=== PATIENT | female | born 1965 | race Caucasian/White ===

== ENCOUNTER 2020-04-02 14:41 | Inpatient (IN) | payer OTHER, SELFPAY ==
[2020-04-02 15:49] LABS: #Basophils 0.1 thou/uL (0.0-0.2); #Eosinphils 0.1 thou/uL (0.0-0.7); #Lymphocytes 2.6 thou/uL (1.20-3.40); #Monocytes 1.1 thou/uL (0.11-0.59); #Neutrophils 14.5 thou/uL (1.40-6.50); %Basophils 0.7 % (0.0-1.0); %Eosinophils 0.6 % (0.0-10.0); %Lymphocytes 14.2 % (21.0-51.0); %Monocytes 5.7 % (0.0-10.0); %Neutrophils 78.9 % (42.0-75.0); Hemoglobin 14.5 g/dL (12.0-16.0); Mean Corpuscular HGB CONC 32.8 g/dL (32.0-36.0); Mean Corpuscular Hemoglobin 30.3 pg (27.0-31.0); Mean Corpuscular Volume 92.4 fL (78.0-98.0); Mean Platelet Volume 7.1 fL (7.4-10.4); Platelet Count 416 thou/uL (130-400); RBC Distribution Width 11.2 % (11.5-14.5); White Blood Cell (WBC) Count 18.4 thou/uL (4.8-10.8)
--- NOTE | 2020-04-02 15:59 | CT ---
CT head noncontrast HISTORY: Numbness. Tingling. Anxiety. FINDINGS: There is no evidence of acute intracranial hemorrhage or infarct. The ventricles appear nor mal in size, shape and position. There is no mass effect or shift of midline structures. Visualized paranasal sinuses remain well aera sami. Benign-appearing well-circumscribed oval partially 0.6 cm calcified lesion within the upper left frontal scalp is noted. IMPRESSION : No acute intracranial abnormalities are demonstrated.
[2020-04-02 16:05] LABS: ALT (SGPT) 12 U/L (8-55); AST (SGOT) 12 U/L (5-34); Albumin 3.8 g/dL (3.5-5.0); Alkaline Phosphatase 50 U/L (40-110); Anion Gap 14 mmol/L (10-20); BUN (Urea Nitrogen) 11 mg/dL (9.8-20.1); Bilirubin, Total 0.2 mg/dL (0.2-1.2); Calc. Creatinine Clearance 0 mL/min (70-130); Calcium 9.6 mg/dL (7.8-10.44); Carbon Dioxide 27 mmol/L (22-29); Chloride 102 mmol/L (98-107); Estimated GFR-MDRD 86; Globulin 2.9 g/dL (2.4-3.5); Glucose 115 mg/dL (70-105); Potassium 3.7 mmol/L (3.5-5.1); Protein, Total 6.7 g/dL (6.0-8.3); Sodium 139 mmol/L (136-145)
[2020-04-02] MEDS ORDERED: Lorazepam 2 MG/ML VIAL ONE ×2 (16:21→22:21)
[2020-04-02 19:26] LABS: Bilirubin Negative (Negative); Blood, Urine Negative (Negative); Clarity Turbid (Clear); Glucose, Urine (Dipstick) Normal (Negative); Ketone, Urine Negative (Negative); Leukocyte Negative Leu/uL (Negative); Nitrite Negative (Negative); Protein, Urine (Dipstick) Negative (Neg-Trace); Specific Gravity, Urine 1.019 (1.002-1.036); Urobilinogen Normal mg/dL (Less than 2)
[2020-04-02] MEDS ORDERED: Ondansetron PF 4 MG/2 ML Vial ONE (19:42)
[2020-04-02] MEDS ORDERED: Vancomycin 1 GM/200 ML BAG ONE (19:43)
[2020-04-02] MEDS ORDERED: Cefepime 2 GM VIAL ONE (19:43)
--- NOTE | 2020-04-02 20:14 | RAD ---
CHEST ONE VIEW: History: Chest pain. Numbness in face, tingling in hands, anxiety. FINDINGS: Heart size is normal. The lungs are clear. No confluent pneumonia, overt edema, or pleural effusion o r other acute process. IMPRESSION: As above. POS: RRE
[2020-04-02] MEDS ORDERED: Acetaminophen 500 MG TAB ONE (20:54)
[2020-04-02] MEDS ORDERED: Ondansetron PF 4 MG/2 ML Vial IVP PRN (21:33)
[2020-04-02] MEDS ORDERED: Acetaminophen 325 MG TAB PO PRN (21:33)
[2020-04-02] MEDS ORDERED: Promethazine HCl 12.5 MG in Sodium Chloride 0.9% 50 ML IVPB PRN (21:33)
[2020-04-02] MEDS ORDERED: Labetalol HCl 100 MG/20 ML VIAL SLOW IVP PRN (21:33)
[2020-04-02] MEDS ORDERED: cloNIDine 0.1 MG TAB PO PRN (21:33)
[2020-04-02] MEDS ORDERED: Guaifenesin DM 100-10/5 ML UDCUP PO PRN (21:33)
[2020-04-02] MEDS ORDERED: hydrALAZINE 20 MG/ML VIAL SLOW IVP PRN (21:33)
--- NOTE | 2020-04-02 21:35 | PDOC.HHP ---
Hospitalist HPI - History of Present Illness migratory numbness and tingling History of Present Illness: Patient is a 54 year old female with PMH severe anxiety, HTN, psoriasis who presents to ED for dizziness and migratory numbness. Patient reports first her hands being numb and dizziness last night. This morning was confused and could not get out of bed. She had a presyncopal episode,. Took her anxiety medication valium, later than day L side of face became numb. She reports also developing headache, dizziness, nausea. She reports a glove distribution of numbness at this moment as well as a dry mouth. She had a bit of chest pressure today, now resolved, denies cardiac history or ever having cardiac workup. she moved here 2 months ago. She was on prednisone before moving a few months ago for psoriasis, not on any steroids for a few months now. she gets humira injections for psoriasis and also takes otezla and GERD/HTN medications, no recent changes in medications. Of note, on interview, patient is anxious/panicking, crying, very scared that we will find something wrong with her this admission. She reports a very significant history of anxiety. In ED, WBC 13, troponin negative, tsh normal, EKG nonacute, CXR and CT head without acute findings. Patient admitted for further workup and care. VBG performed with low CO2 but ph still normal at 7.41 Hospitalist ROS - Review of Systems Constitutional: reports: weakness, malaise, other (dizziness). denies: fever, chills, sweats Eyes: denies: pain, vision change, conjunctivae inflammation, eyelid inflammation, redness, other ENT: denies: ear pain, ear discharge, nose pain, nose discharge, nose congestion, mouth pain, mouth swelling, throat pain, throat swelling, other Respiratory: denies: cough, dry, shortness of breath, hemoptysis, SOB with excertion, pleuritic pain, sputum, wheezing, other Cardiovascular: reports: chest pain, palpitations, light headedness Gastrointestinal: denies: nausea, vomiting, abdominal pain, diarrhea, constipation, melena, hematochezia, other Genitourinary: denies: dysuria, frequency, incontinence, hematuria, retention, other Musculoskeletal: denies: neck pain, shoulder pain, arm pain, back pain, hand pain, leg pain, foot pain, other Skin: denies: rash, lesions, diana, bruising, other Neurological: reports: numbness (per HPI) All other systems reviewed; all pertinent +/- noted in HPI/Subj - Medication Medications: diazePAM oral ThuApr 02, 2020 16:04 RODRICK Diaz Jessica tablet : Strength - 5 mg : ORAL Patient Dose: 5 mg Oral As Needed. Otezla ThuApr 02, 2020 16:04 RODRICK Diaz Jessica tablet : Strength - 30 mg : ORAL Patient Dose: 30 mg Oral once a day. lisinopril-hydrochlorothiazide ThuApr 02, 2020 16:05 RODRICK Diaz Jessica tablet : Strength - 20 mg-12.5 mg : ORAL Patient Dose: 1 tab(s) Oral once a day. famotidine oral ThuApr 02, 2020 16:05 RODRICK Diaz Jessica tablet : Strength - 20 mg : ORAL Patient Dose: 20 mg Oral once a day. Humira ThuApr 02, 2020 16:08 RODRICK Diaz Jessica syringe kit : Strength - 10 mg/0.2 mL : SUBCUTANEOUS Patient Dose: unk.EVERY 2 WEEKS. Hospitalist History - Past Medical History Other Medical History: HTN, psoriasis, anxiety - Past Surgical History Past Surgical History: reports: Hysterectomy - Family History Family History: reports: no pertinent history - Social History Smoking Status: Never smoker Alcohol: reports: None Drugs: reports: marijuana - Exam General Appearance: NAD, awake alert General - other findings: anxious Eye: PERRL, anicteric sclera ENT: normocephalic atraumatic, no oropharyngeal lesions, moist mucosa Neck: supple, symmetric, no JVD, no thyromegaly, no lymphadenopathy, no carotid bruit Heart: RRR, no murmur, no gallops, no rubs, normal peripheral pulses Respiratory: CTAB, no wheezes, no rales, no ronchi, normal chest expansion, no tachypnea, normal percussion Gastrointestinal: soft, non-tender, non-distended, normal bowel sounds, no palpable masses, no hepatomegaly, no splenomegaly, no bruit Extremities: no cyanosis, no clubbing, no edema Skin: normal turgor, no lesions, no rashes Neurological: cranial nerve grossly intact, normal sensation to touch, no weakness, no focal deficits, no new deficit Musculoskeletal: normal tone, normal strength, no muscle wasting Psychiatric: A&O x 3, oriented to person, oriented to place, oriented to time Psychiatric - other findings: extremely anxious and crying Hospitalist Results - Labs Result Diagrams: 04/03/20 04:05 04/03/20 04:05 Lab results: WBC 18.4 thou/uL (4.8-10.8) H 04/02/20 15:25 Hgb 14.5 g/dL (12.0-16.0) 04/02/20 15:25 Hct 44.3 % (36.0-47.0) 04/02/20 15:25 MCV 92.4 fL (78.0-98.0) 04/02/20 15:25 Plt Count 416 thou/uL (130-400) H 04/02/20 15:25 Neutrophils % 78.9 % (42.0-75.0) H 04/02/20 15:25 Sodium 139 mmol/L (136-145) 04/02/20 15:25 Potassium 3.7 mmol/L (3.5-5.1) 04/02/20 15:25 Chloride 102 mmol/L (98-107) 04/02/20 15:25 Carbon Dioxide 27 mmol/L (22-29) 04/02/20 15:25 BUN 11 mg/dL (9.8-20.1) 04/02/20 15:25 Creatinine 0.71 mg/dL (0.6-1.1) 04/02/20 15:25 Glucose 115 mg/dL (70-105) H 04/02/20 15:25 Lactic Acid 1.5 mmol/L (0.5-2.2) 04/02/20 18:27 Calcium 9.6 mg/dL (7.8-10.44) 04/02/20 15:25 Total Bilirubin 0.2 mg/dL (0.2-1.2) 04/02/20 15:25 AST 12 U/L (5-34) 04/02/20 15:25 ALT 12 U/L (8-55) 04/02/20 15:25 Alkaline Phosphatase 50 U/L (40-110) 04/02/20 15:25 Troponin I Less than 0.010 ng/mL (< 0.028) 04/02/20 15:25 Serum Total Protein 6.7 g/dL (6.0-8.3) 04/02/20 15:25 Albumin 3.8 g/dL (3.5-5.0) 04/02/20 15:25 Lipase 47 U/L (8-78) 04/02/20 19:36 Urine Ketones Negative mg/dL (Negative) 04/02/20 19:05 Urine Blood Negative (Negative) 04/02/20 19:05 Urine Nitrite Negative (Negative) 04/02/20 19:05 Ur Leukocyte Esterase Negative Nereyda/uL (Negative) 04/02/20 19:05 Additional comment: labs, EKG, ed documents, imaging reports reviewed. VITAL SIGNS ThuApr 02, 2020 21:00 RODRICK Rios Jordan BP: 129/100 MAP: 109 Pulse: 96 Resp: 20 Pain: 0 O2 sat: 98 on (Room Air) Time: 04/02/2020 21:00. Hospitalist H&P A/P - Plan Plan: Patient is a 54 year old female with PMH severe anxiety, HTN, psoriasis who pres ents to ED for dizziness and migratory numbness and chest pain. # chest pain # numbness/tingling # leukocytosis # history of anxiety, psoriasis, HTN A very wide range of symptoms x 24 hours or so including numbness, chest pain, altered mental status, dizziness, presyncope. No cardiac history, never had cardiac workup. No recent medication changes. She reports a very significant history of anxiety. In ED, WBC 13, troponin negative, tsh normal, EKG nonacute, CXR and CT head without acute findings. Patient admitted for further workup and care. - VBG performed with normal PH but low CO2, which could suggest hyperventilation and respiratory alkalosis. I was wondering if this could be respiratory alkalosis from anxiety induced hyperventilation ,she has low CO2 and when panicking may be causing alkalosis, but this may be hard to confirm. monitor psychiatric symptoms - rule out OR w/ stress test, echo to rule out valve disease. aspirin and statin in meantime - if all else is negative, could consider neurology consult, will depend on progression of symptoms. I somewhat suspect this is all anxiety related though, will order PRN ativan which may improve patient mental state - unsure why leukocytosis present, no signs of infection. monitor off of abx. DVT/GI ppx full code
[2020-04-02 21:38] LABS: Troponin I Less than 0.010 ng/mL (< 0.028)
[2020-04-02] MEDS ORDERED: Lorazepam 2 MG/ML VIAL SLOW IVP PRN (21:45)
[2020-04-02] MEDS ORDERED: Lorazepam 2 MG/ML VIAL SLOW IVP SCH (22:00)
[2020-04-02] MEDS: Sodium Chloride 0.9% 1,000 ML IV SCH (23:44)
[2020-04-03 01:14] LABS: Troponin I Less than 0.010 ng/mL (< 0.028)
[2020-04-03 03:45] LABS: Actual Bicarbonate (HCO3v) 24 mEq/L (22-28); Base Excess -0.8 mEq/L (-2.0 to +3.0); Calcium, Ionized (venous) 1.13 mmol/L (1.16-1.32); Chloride (ABG LAB) 107 mmol/L (98-106); Hemoglobin (Hb) 12.8 g/dL (11.7-16.0); Potassium - ABG Lab 3.32 mmol/L (3.70-5.30); Sodium 138.7 mmol/L (133-146); pH (venous) 7.41 (7.32-7.43)
[2020-04-03 04:44] LABS: #Basophils 0.1 thou/uL (0.0-0.2); #Eosinphils 0.3 thou/uL (0.0-0.7); #Lymphocytes 5.7 thou/uL (1.20-3.40); #Monocytes 1.2 thou/uL (0.11-0.59); #Neutrophils 5.8 thou/uL (1.40-6.50); %Basophils 1.1 % (0.0-1.0); %Eosinophils 2.6 % (0.0-10.0); %Lymphocytes 43.2 % (21.0-51.0); %Monocytes 8.9 % (0.0-10.0); %Neutrophils 44.3 % (42.0-75.0); Hemoglobin 12.6 g/dL (12.0-16.0); Mean Corpuscular HGB CONC 33.4 g/dL (32.0-36.0); Mean Corpuscular Hemoglobin 31.1 pg (27.0-31.0); Mean Platelet Volume 7.3 fL (7.4-10.4); Platelet Count 359 thou/uL (130-400); RBC Distribution Width 11.2 % (11.5-14.5); Red Blood Cell (RBC) Count 4.06 mill/uL (4.20-5.40); White Blood Cell (WBC) Count 13.2 thou/uL (4.8-10.8)
[2020-04-03 05:03] LABS: Anion Gap 11 mmol/L (10-20); BUN (Urea Nitrogen) 10 mg/dL (9.8-20.1); Calc. Creatinine Clearance 156 mL/min (70-130); Calcium 8.2 mg/dL (7.8-10.44); Carbon Dioxide 22 mmol/L (22-29); Chloride 109 mmol/L (98-107); Estimated GFR-MDRD Greater than 90; Glucose 99 mg/dL (70-105); Potassium 3.5 mmol/L (3.5-5.1); Sodium 138 mmol/L (136-145)
[2020-04-03] MEDS ORDERED: Magnesium 2 GM/50 ML 2 GM in Premix Bag 1 BAG IVPB SCH (06:30)
[2020-04-03] MEDS ORDERED: Potassium Chloride 20 MEQ TAB PO SCH (06:45)
[2020-04-03] MEDS ORDERED: Aspirin 325 mg Enteric Coated Tablet PO SCH (07:45)
[2020-04-03] MEDS ORDERED: ADENOSINE 60 MG/20 ML VIAL ONE (08:54)
[2020-04-03] MEDS: Famotidine 20 MG TAB PO SCH ×2 (08:54→20:51)
[2020-04-03] MEDS: Aspirin 81 mg Enteric Coated Tablet PO SCH (08:54)
[2020-04-03] MEDS ORDERED: Regadenoson 0.4 MG/5 ML SYRINGE ONE (08:54)
[2020-04-03] MEDS: Sodium Chloride 0.9% 1,000 ML IV SCH ×2 (08:56→22:35)
--- NOTE | 2020-04-03 13:46 | CON ---
NEUROLOGY CONSULTATION DATE OF CONSULTATION: 04/03/2020 REASON FOR CONSULTATION: Focal paresthesias of left face and left upper extremity/spells of disorientation. HISTORY OF PRESENT ILLNESS: Ms. Amber Roper is a 54-year-old female with history significant for severe anxiety, hypertension, psoriasis, presented with dizziness and focal paresthesias of the left side of the face and left upper extremity. However, at times, she does have numbness and tingling of both hands. The patient also has syncopal episode associated with the confusion, which was followed by later that day left-sided facial numbness associated with numbness in the left upper extremity. She also has glove and stocking distribution numbness most of the time with dry mouth. Per the patient, she has been having these episodes on and off since the last 1 month, but for the last couple of days, they have been progressive, so she decided to come to the emergency room for further evaluation. In the emergency room, head CT was done, which did not reveal any acute intracranial pathology. She also has complained of chest pain and pressure, for which she has been currently evaluated by Cardiology. The patient denies nausea or vomiting. Reports chest pain. She does have dizziness and nausea, but denies problem with speech or swallowing associated with the episode. HOME MEDICATIONS: 1. Diazepam 5 mg as needed. 2. Otezla 30 mg once daily. 3. Lisinopril-hydrochlorothiazide 20 mg once a day. 4. Famotidine 20 mg once a day. 5. Humira subcutaneously every 2 weeks. PAST MEDICAL HISTORY: 1. Hypertension. 2. Psoriasis. 3. Anxiety. PAST SURGICAL HISTORY: Hysterectomy. FAMILY HISTORY: No pertinent family history. SOCIAL HISTORY: The patient denies smoking, alcohol, or illegal drug use. ALLERGIES: PCN, Sulfa REVIEW OF SYSTEMS: Constitutional: reports: weakness, malaise, other (dizziness). denies: fever, chills, sweats Eyes: denies: pain, vision change, conjunctivae inflammation, eyelid inflammation, redness, other ENT: denies: ear pain, ear discharge, nose pain, nose discharge, nose congestion, mouth pain, mouth swelling, throat pain, throat swelling, other Respiratory: denies: cough, dry, shortness of breath, hemoptysis, SOB with excertion, pleuritic pain, sputum, wheezing, other Cardiovascular: reports: chest pain, palpitations, light headedness Gastrointestinal: denies: nausea, vomiting, abdominal pain, diarrhea, constipation, melena, hematochezia, other Genitourinary: denies: dysuria, frequency, incontinence, hematuria, retention, other Musculoskeletal: denies: neck pain, shoulder pain, arm pain, back pain, hand pain, leg pain, foot pain, other Skin: denies: rash, lesions, diana, bruising, other Neurological: reports: numbness (per HPI) All other systems reviewed; all pertinent +/- noted in HPI/Subj PHYSICAL EXAMINATION: General Appearance: NAD, awake alert General - other findings: anxious Eye: PERRL, anicteric sclera ENT: normocephalic atraumatic, no oropharyngeal lesions, moist mucosa Neck: supple, symmetric, no JVD, no thyromegaly, no lymphadenopathy, no carotid bruit Heart: RRR, no murmur, no gallops, no rubs, normal peripheral pulses Respiratory: CTAB, no wheezes, no rales, no ronchi, normal chest expansion, no tachypnea, normal percussion Gastrointestinal: soft, non-tender, non-distended, normal bowel sounds, no palpable masses, no hepatomegaly, no splenomegaly, no bruit Extremities: no cyanosis, no clubbing, no edema Skin: normal turgor, no lesions, no rashes Neurological: Mental status; the patient is alert and oriented to person, place, and time. Recent and remote memory clear. Fund of knowledge is appropriate. Speech is clear. Cranial nerves 2 through 12 intact except 5. Decreased sensation to light touch in the V1, V2, V3 distribution. Motor; muscle tone and bulk are normal. Moving all 4 extremities equally and symmetrically. Strength 5/5 bilaterally. Sensory; decreased sensation to light touch in the left upper extremity. Cerebellar; finger-nose testing intact. Gait within normal limits. DATA REVIEWED: I reviewed the labs, which were essentially unremarkable. EKG showed normal sinus rhythm. Lab results: WBC 18.4 thou/uL (4.8-10.8) H 04/02/20 15:25 Hgb 14.5 g/dL (12.0-16.0) 04/02/20 15:25 Hct 44.3 % (36.0-47.0) 04/02/20 15:25 MCV 92.4 fL (78.0-98.0) 04/02/20 15:25 Plt Count 416 thou/uL (130-400) H 04/02/20 15:25 Neutrophils % 78.9 % (42.0-75.0) H 04/02/20 15:25 Sodium 139 mmol/L (136-145) 04/02/20 15:25 Potassium 3.7 mmol/L (3.5-5.1) 04/02/20 15:25 Chloride 102 mmol/L (98-107) 04/02/20 15:25 Carbon Dioxide 27 mmol/L (22-29) 04/02/20 15:25 BUN 11 mg/dL (9.8-20.1) 04/02/20 15:25 Creatinine 0.71 mg/dL (0.6-1.1) 04/02/20 15:25 Glucose 115 mg/dL (70-105) H 04/02/20 15:25 Lactic Acid 1.5 mmol/L (0.5-2.2) 04/02/20 18:27 Calcium 9.6 mg/dL (7.8-10.44) 04/02/20 15:25 Total Bilirubin 0.2 mg/dL (0.2-1.2) 04/02/20 15:25 AST 12 U/L (5-34) 04/02/20 15:25 ALT 12 U/L (8-55) 04/02/20 15:25 Alkaline Phosphatase 50 U/L (40-110) 04/02/20 15:25 Troponin I Less than 0.010 ng/mL (< 0.028) 04/02/20 15:25 Serum Total Protein 6.7 g/dL (6.0-8.3) 04/02/20 15:25 Albumin 3.8 g/dL (3.5-5.0) 04/02/20 15:25 Lipase 47 U/L (8-78) 04/02/20 19:36 Urine Ketones Negative mg/dL (Negative) 04/02/20 19:05 Urine Blood Negative (Negative) 04/02/20 19:05 Urine Nitrite Negative (Negative) 04/02/20 19:05 Ur Leukocyte Esterase Negative Nereyda/uL (Negative) 04/02/20 19:05 Additional comment: labs, EKG, ed documents, imaging reports reviewed. ASSESSMENT AND PLAN: Ms. Roper is a 54-year-old female with history significant for severe anxiety, hypertension, psoriasis, presented with focal numbness and paresthesias in the left side of the face and left upper extremity and some episodes of disorientation. She also complains of chest pain, for which she has been evaluated by Cardiology. Consider EEG to rule out underlying cortical irritability. MRI of the brain to rule out acute intracranial process. Continue neuro checks every 2 hours. Continue home medications. Continue medical management per primary team. Continue aspirin and high-intensity statin for secondary stroke prevention. DVT prophylaxis, GI prophylaxis. Further recommendation depends on the results of the testing. Thank you for the consult. Job ID: [id number] MTDD
[2020-04-03] MEDS ORDERED: Magnevist 469MG/ML 20 ML VIAL ONE (13:48)
[2020-04-03] MEDS: Polyethylene Glycol 3350 17 GM Packet PO SCH (13:55)
[2020-04-03] MEDS: Diazepam 5 MG TAB PO PRN (14:21)
--- NOTE | 2020-04-03 15:36 | MRI ---
MRI brain with and without contrast: DATE: 04/03/2020 HISTORY: 54-year-old female with seizure TECHNIQUE: Multiplanar, multisequence MRI of the brain obtained pre and post IV injection of gadolinium based co ntrast agent. FINDINGS: There is no obstructive hydrocephalus. There is no midline shift or any other evidence of mass effect . There is no extra-axial fluid collection. There are mild chronic ischemic white matter changes due to microvascular atherosclerosis. There is otherwise no major intra-axial signal abnormality, abn ormal enhancement, mass, recent hemorrhage, or restricted diffusion. No asymmetry between the left and right hippocampi. IMPRESSION: 1) mild chronic ischemic white matter changes. 2) otherwise negative
[2020-04-03] MEDS ORDERED: Cyclobenzaprine 10 MG TAB PO SCH (18:30)
[2020-04-03] MEDS: Meclizine HCl 25 MG TAB PO SCH (19:06)
[2020-04-03] MEDS: Enoxaparin Sodium 40 MG/0.4 ML SYRINGE SC SCH (20:48)
[2020-04-03] MEDS: Atorvastatin Calcium 40 MG TAB PO SCH (20:51)
[2020-04-03] MEDS: Docusate 100 MG CAP PO SCH (20:51)
[2020-04-04] MEDS: Meclizine HCl 25 MG TAB PO SCH ×3 (01:42→18:23)
--- NOTE | 2020-04-04 08:30 | EEG ---
DATE OF SERVICE: 04/03/2020 ATTENDING PHYSICIAN: Desiree Maurice MD This EEG was performed using 24-channel [employer] video digital EEG machine with 24-disk electrodes. This was an extended 2 hours 6 minutes of inpatient video EEG recording. Digital analysis of the EEG was done for spike and seizure detection, which revealed no abnormalities. BACKGROUND: The posterior background rhythm is 9 to 10 hertz. The background rhythm attenuates with eye opening and enhances with eye closure. HYPERVENTILATION: Not performed. PHOTIC STIMULATION: No significant response seen with photic stimulation. SLEEP: Drowsiness is observed. EEG DIAGNOSIS: Normal awake and drowsy EEG. Job ID: [id number]
[2020-04-04] MEDS: Famotidine 20 MG TAB PO SCH ×2 (09:12→21:22)
[2020-04-04] MEDS: Aspirin 81 mg Enteric Coated Tablet PO SCH (09:13)
[2020-04-04] MEDS: Polyethylene Glycol 3350 17 GM Packet PO SCH (09:13)
--- NOTE | 2020-04-04 10:28 | NM ---
CARDIAC SPECT: CLINICAL HISTORY: 54-year-old female with chest pain and hypertension. TECHNIQUE: A myocardial perfusion scan was performed using the single isotope two day protocol with 31 mCi techn etium-99m sestamibi injected intravenously for both stress and rest images. Pharmacologic stress with Adenosine was monitored and interpreted by Dr. Traylor. FINDINGS: Homogeneous tracer distribution is seen in the myocardial segments on the rest images. The stress willem ges demonstrate a small focal area of mildly decreased tracer localization in the distal anteroseptal wall. GATED SPECT LVEF: 67%. WALL MOTION EXAM: Normal. IMPRESSION: Probable small area of mild ischemia in the distal anteroseptal wall. POS: AH
[2020-04-04] MEDS: Sodium Chloride 0.9% 1,000 ML IV SCH (10:32)
[2020-04-04] MEDS ORDERED: ALPRAZolam 0.25 MG TAB PO PRN (11:26)
[2020-04-04] MEDS ORDERED: traMADol HCl 50 MG TAB PO PRN (11:26)
[2020-04-04] MEDS ORDERED: Communication Order-Pharmacy FS SCH (11:30)
[2020-04-04 11:51] LABS: SARS-CoV-2 MS2 Positive; SARS-CoV-2 N Gene Negative; SARS-CoV-2 S Gene Negative; SARS-CoV-2 by NAA Not Detected (NotDetected); SARS-CoV-2 orf1ab Negative
--- NOTE | 2020-04-04 13:53 | STRESS ---
Acquisition Time: 2020-04-03 09:41:13 Total Exercise Time: 00:04:00 Test Indications: CHEST PAIN Medications: Protocol: ADENOSINE Max HR: 131 BPM 78% of Pred: 166 BPM Max BP: 138/062 mmHG Max Work Load: 1.0 METS THE PATIENT DEVELOPED COMPLETE HEART BLOCK WITH ADENOSINE. THE PATIENT WAS THEN INJECTED WITH LEXISCAN. SHE DID DEVELOP CHEST PAIN. THERE WAS NO SIGNIFICANT ST DEPRESSION. AWAIT NUCLEAR IMAGES FOR DEFINITIVE DIAGNOSIS. Confirmed by ERNIE EARLY ([id number]), editor at large DORIAN RODGERS ([id number]) on 04/04/2020 1:53:32 PM Referred By: MD Sergio CASTILLO Confirmed By:ERNIE EARLY
--- NOTE | 2020-04-04 13:58 | PDOC.NEUPN ---
- Subjective Encounter Date: 04/04/20 Subjective: Patient feels better today. MRI brain and EEG were negative. Results explained to the patient. - Objective Vital Signs & Weight: Vital Signs (12 hours) Temp Pulse Resp BP Pulse Ox 04/04/20 11:59 97.8 F 83 16 171/81 H 99 04/04/20 08:02 97.4 F L 88 16 132/74 98 04/04/20 03:50 97.6 F 75 20 114/75 97 Weight Admit Weight 216 lb 3 oz Weight 215 lb 6.4 oz I&O: 04/03/20 04/04/20 04/05/20 06:59 06:59 06:59 Intake Total 840 1680 Balance 840 1680 Result Diagrams: 04/03/20 04:05 04/03/20 04:05 Radiology Reviewed by me: Yes EKG Reviewed by me: Yes ROS - Review of Systems Constitutional: denies: fever, chills, sweats, weakness, malaise, other Eyes: denies: pain, vision change, conjunctivae inflammation, eyelid inflammation, redness, other ENT: denies: ear pain, ear discharge, nose pain, nose discharge, nose congestion, mouth pain, mouth swelling, throat pain, throat swelling, other Respiratory: denies: cough, dry, shortness of breath, hemoptysis, SOB with excertion, pleuritic pain, sputum, wheezing, other Cardiovascular: reports: no pertinent history Gastrointestinal: denies: nausea, vomiting, abdominal pain, diarrhea, constipation, melena, hematochezia, other Musculoskeletal: reports: arm pain. denies: neck pain, shoulder pain, back p ain, hand pain, leg pain, foot pain, other Neurological: reports: weakness, numbness. denies: incoordination, change in speech, confusion, seizures, other - Medication Medications: Active Medications Generic Name Dose Route Start Last Admin Trade Name Freq PRN Reason Stop Dose Admin Alprazolam 0.25 mg 04/04/20 11:26 04/04/20 11:49 Alprazolam 0.25 Mg Tab PO 0.25 mg TIDPRN PRN Administration Anxiety Aspirin 81 mg 04/03/20 09:00 04/04/20 09:13 Aspirin 81 Mg Enteric Coated Tablet PO 81 mg DAILY KARMA Administration Atorvastatin Calcium 40 mg 04/03/20 21:00 04/03/20 20:51 Atorvastatin Calcium 40 Mg Tab PO 40 mg HS KARMA Administration Diazepam 5 mg 04/03/20 08:31 04/03/20 14:21 Diazepam 5 Mg Tab PO 5 mg BID PRN Administration Anxiety Docusate Sodium 100 mg 04/03/20 21:00 04/03/20 20:51 Docusate 100 Mg Cap PO 100 mg HS KARMA Administration Enoxaparin Sodium 40 mg 04/03/20 21:00 04/03/20 20:48 Enoxaparin Sodium 40 Mg/0.4 Ml Syringe SC 04/04/20 23:00 40 mg 2100 KARMA Administration Famotidine 20 mg 04/03/20 09:00 04/04/20 09:12 Famotidine 20 Mg Tab PO 20 mg BID KARMA Administration Lorazepam 0.5 mg 04/02/20 21:45 04/03/20 12:12 Lorazepam 2 Mg/Ml Vial SLOW IVP 0.5 mg Q6H PRN Administration Anxiety/Agitation Meclizine HCl 25 mg 04/03/20 18:30 04/04/20 10:31 Meclizine Hcl 25 Mg Tab PO 25 mg Q8H KARMA Administration Polyethylene Glycol 17 gm 04/03/20 09:00 04/04/20 09:13 Polyethylene Glycol 3350 17 Gm Packet PO 17 gm DAILY KARMA Administration Sodium Chloride 10 ml 04/03/20 09:00 04/04/20 09:13 Flush - Normal Saline 10 Ml Syringe IVF 10 ml Q12HR KARMA Administration Tramadol HCl 50 mg 04/04/20 11:26 04/04/20 11:49 Tramadol Hcl 50 Mg Tab PO 50 mg Q6H PRN Administration Pain - Exam General Appearance: awake alert Eye: PERRL ENT: normocephalic atraumatic Neck: supple Respiratory: CTAB Cardiovascular: RRR Gastrointestinal: soft, non-tender Extremities: no cyanosis Skin: normal turgor Neurological: no focal deficits, no new deficit Musculoskeletal: normal tone, normal strength, no muscle wasting PSYCH: normal affect, normal behavior, A&O x 3 Results - Labs Result Diagrams: 04/03/20 04:05 04/03/20 04:05 Lab results: WBC 13.2 thou/uL (4.8-10.8) H 04/03/20 04:05 Hgb 12.6 g/dL (12.0-16.0) 04/03/20 04:05 Hct 37.7 % (36.0-47.0) 04/03/20 04:05 MCV 93.0 fL (78.0-98.0) 04/03/20 04:05 Plt Count 359 thou/uL (130-400) 04/03/20 04:05 Neutrophils % 44.3 % (42.0-75.0) 04/03/20 04:05 VBG pH 7.41 (7.32-7.43) 04/03/20 03:44 VBG pCO2 37.6 mmHg (42.0-51.0) L 04/03/20 03:44 VBG pO2 243.0 mmHg (35.0-45.0) H 04/03/20 03:44 Sodium 138 mmol/L (136-145) 04/03/20 04:05 Potassium 3.5 mmol/L (3.5-5.1) 04/03/20 04:05 Chloride 109 mmol/L (98-107) H 04/03/20 04:05 Carbon Dioxide 22 mmol/L (22-29) 04/03/20 04:05 BUN 10 mg/dL (9.8-20.1) 04/03/20 04:05 Creatinine 0.64 mg/dL (0.6-1.1) 04/03/20 04:05 Glucose 99 mg/dL (70-105) 04/03/20 04:05 Lactic Acid 1.5 mmol/L (0.5-2.2) 04/02/20 18:27 Calcium 8.2 mg/dL (7.8-10.44) 04/03/20 04:05 Total Bilirubin 0.2 mg/dL (0.2-1.2) 04/02/20 15:25 AST 12 U/L (5-34) 04/02/20 15:25 ALT 12 U/L (8-55) 04/02/20 15:25 Alkaline Phosphatase 50 U/L (40-110) 04/02/20 15:25 Troponin I Less than 0.010 ng/mL (< 0.028) 04/03/20 00:37 Serum Total Protein 6.7 g/dL (6.0-8.3) 04/02/20 15:25 Albumin 3.8 g/dL (3.5-5.0) 04/02/20 15:25 Lipase 47 U/L (8-78) 04/02/20 19:36 Urine Ketones Negative mg/dL (Negative) 04/02/20 19:05 Urine Blood Negative (Negative) 04/02/20 19:05 Urine Nitrite Negative (Negative) 04/02/20 19:05 Ur Leukocyte Esterase Negative Nereyda/uL (Negative) 04/02/20 19:05 - Radiology Interpretation MRI - head Status: image reviewed by me, report reviewed by me Additional Comment: No acute intracranial pathology PN A/P (1) Complaint of paresthesia Code(s): R20.2 - PARESTHESIA OF SKIN Status: Acute (2) AMS (altered mental status) Code(s): R41.82 - ALTERED MENTAL STATUS, UNSPECIFIED Status: Acute (3) Anxiety Code(s): F41.9 - ANXIETY DISORDER, UNSPECIFIED Status: Acute (4) Chest pain Code(s): R07.9 - CHEST PAIN, UNSPECIFIED Status: Acute - Plan Daily Plan: PT/OT, speech therapy 54-year-old female with history of anxiety disorder and multiple complaints i ncluding focal paresthesias of the face and arm, mild episodes of confusion, chest pain consulted by neurology. Intracranial process seems less likely due to negative imaging and EEG MRI of the brain completed and was which was reviewed and was negative for acute intracranial pathology. EEG reviewed and was negative for underlying cortical irritability. 2D echo did not not show thrombus or PFO. Left ventricle ejection fraction is 60 to 65%. Continue home medications PT/OT Strict control of blood pressure and blood glucose. Continue medical management per primary team. Plan and results discussed in detail with the patient.
--- NOTE | 2020-04-04 16:53 | PDOC.HOSPP ---
- Subjective Encounter Date: 04/04/20 Encounter Time: 09:00 Subjective: Patient up in bed appears very emotional she was updated that she will be seen by cardiology. - Objective Vital Signs & Weight: Vital Signs (12 hours) Temp Pulse Resp BP Pulse Ox 04/04/20 11:59 97.8 F 83 16 171/81 H 99 04/04/20 08:02 97.4 F L 88 16 132/74 98 Weight Admit Weight 216 lb 3 oz Weight 215 lb 6.4 oz I&O: 04/03/20 04/04/20 04/05/20 06:59 06:59 06:59 Intake Total 840 1680 Balance 840 1680 Result Diagrams: 04/03/20 04:05 04/03/20 04:05 Hospitalist ROS - Review of Systems Cardiovascular: denies: chest pain, palpitations, orthopnea, paroxysmal noc. dyspnea, edema, light headedness, other Gastrointestinal: denies: nausea, vomiting, abdominal pain, diarrhea, constipat ion, melena, hematochezia, other Genitourinary: denies: dysuria, frequency, incontinence, hematuria, retention, other - Medication Medications: Active Medications Generic Name Dose Route Start Last Admin Trade Name Freq PRN Reason Stop Dose Admin Alprazolam 0.25 mg 04/04/20 11:26 04/04/20 11:49 Alprazolam 0.25 Mg Tab PO 0.25 mg TIDPRN PRN Administration Anxiety Aspirin 81 mg 04/03/20 09:00 04/04/20 09:13 Aspirin 81 Mg Enteric Coated Tablet PO 81 mg DAILY KARMA Administration Atorvastatin Calcium 40 mg 04/03/20 21:00 04/03/20 20:51 Atorvastatin Calcium 40 Mg Tab PO 40 mg HS KARMA Administration Diazepam 5 mg 04/03/20 08:31 04/03/20 14:21 Diazepam 5 Mg Tab PO 5 mg BID PRN Administration Anxiety Docusate Sodium 100 mg 04/03/20 21:00 04/03/20 20:51 Docusate 100 Mg Cap PO 100 mg HS KARMA Administration Enoxaparin Sodium 40 mg 04/03/20 21:00 04/03/20 20:48 Enoxaparin Sodium 40 Mg/0.4 Ml Syringe SC 04/04/20 23:00 40 mg 2100 KARMA Administration Famotidine 20 mg 04/03/20 09:00 04/04/20 09:12 Famotidine 20 Mg Tab PO 20 mg BID KARMA Administration Lorazepam 0.5 mg 04/02/20 21:45 04/03/20 12:12 Lorazepam 2 Mg/Ml Vial SLOW IVP 0.5 mg Q6H PRN Administration Anxiety/Agitation Meclizine HCl 25 mg 04/03/20 18:30 04/04/20 10:31 Meclizine Hcl 25 Mg Tab PO 25 mg Q8H KARMA Administration Polyethylene Glycol 17 gm 04/03/20 09:00 04/04/20 09:13 Polyethylene Glycol 3350 17 Gm Packet PO 17 gm DAILY KARMA Administration Sodium Chloride 10 ml 04/03/20 09:00 04/04/20 09:13 Flush - Normal Saline 10 Ml Syringe IVF 10 ml Q12HR KARMA Administration Tramadol HCl 50 mg 04/04/20 11:26 04/04/20 11:49 Tramadol Hcl 50 Mg Tab PO 50 mg Q6H PRN Administration Pain - Exam Neck: negative: supple, symmetric, no JVD, no thyromegaly, no lymphadenopathy, no carotid bruit, JVD Heart: negative: RRR, no murmur, no gallops, no rubs, normal peripheral pulses, irregular, diminshed peripheral pulses, murmur present, II/IV, III/IV Respiratory: negative: CTAB, no wheezes, no rales, no ronchi, normal chest expansion, no tachypnea, normal percussion, rales, rhonchi, tachypneic, wheezes Gastrointestinal: negative: soft, non-tender, non-distended, normal bowel sounds, no palpable masses, no hepatomegaly, no splenomegaly, no bruit, no guarding, no rigidity, tender to palpation, distended, diminished bowl sounds, voluntary guarding Hosp A/P (1) Third degree heart block Code(s): I44.2 - ATRIOVENTRICULAR BLOCK, COMPLETE Status: Acute (2) Psoriasis Code(s): L40.9 - PSORIASIS, UNSPECIFIED Status: Acute (3) Anxiety Code(s): F41.9 - ANXIETY DISORDER, UNSPECIFIED Status: Acute (4) Chest pain Code(s): R07.9 - CHEST PAIN, UNSPECIFIED Status: Acute - Plan MRI brain negative. Patient went down for stress test today had third-degree heart block. Will get cardiology to see her. Patient being evaluated by neurology 04/04 patient up in bed and seen by cardiology will get a cardiac cath in a.m. Will order as needed Xanax. Labs ordered. Echo pending.
--- NOTE | 2020-04-04 16:54 | PDOC.HOSPP ---
- Subjective Encounter Date: 04/03/20 Encounter Time: 17:00 Subjective: Patient up in chair states that she gets dizzy at times when she gets out of bed. She states that she has been having this going on for the past month. - Objective Vital Signs & Weight: Vital Signs (12 hours) Temp Pulse Resp BP Pulse Ox 04/04/20 11:59 97.8 F 83 16 171/81 H 99 04/04/20 08:02 97.4 F L 88 16 132/74 98 Weight Admit Weight 216 lb 3 oz Weight 215 lb 6.4 oz I&O: 04/03/20 04/04/20 04/05/20 06:59 06:59 06:59 Intake Total 840 1680 Balance 840 1680 Result Diagrams: 04/03/20 04:05 04/03/20 04:05 Hospitalist ROS - Review of Systems Respiratory: denies: cough, dry, shortness of breath, hemoptysis, SOB with excertion, pleuritic pain, sputum, wheezing, other Cardiovascular: reports: light headedness Gastrointestinal: denies: nausea, vomiting, abdominal pain, diarrhea, constipation, melena, hematochezia, other Genitourinary: denies: dysuria, frequency, incontinence, hematuria, retention, other - Medication Medications: Active Medications Generic Name Dose Route Start Last Admin Trade Name Freq PRN Reason Stop Dose Admin Alprazolam 0.25 mg 04/04/20 11:26 04/04/20 11:49 Alprazolam 0.25 Mg Tab PO 0.25 mg TIDPRN PRN Administration Anxiety Aspirin 81 mg 04/03/20 09:00 04/04/20 09:13 Aspirin 81 Mg Enteric Coated Tablet PO 81 mg DAILY KARMA Administration Atorvastatin Calcium 40 mg 04/03/20 21:00 04/03/20 20:51 Atorvastatin Calcium 40 Mg Tab PO 40 mg HS KARMA Administration Diazepam 5 mg 04/03/20 08:31 04/03/20 14:21 Diazepam 5 Mg Tab PO 5 mg BID PRN Administration Anxiety Docusate Sodium 100 mg 04/03/20 21:00 04/03/20 20:51 Docusate 100 Mg Cap PO 100 mg HS KARMA Administration Enoxaparin Sodium 40 mg 04/03/20 21:00 04/03/20 20:48 Enoxaparin Sodium 40 Mg/0.4 Ml Syringe SC 04/04/20 23:00 40 mg 2100 KARMA Administration Famotidine 20 mg 04/03/20 09:00 04/04/20 09:12 Famotidine 20 Mg Tab PO 20 mg BID KARMA Administration Lorazepam 0.5 mg 04/02/20 21:45 04/03/20 12:12 Lorazepam 2 Mg/Ml Vial SLOW IVP 0.5 mg Q6H PRN Administration Anxiety/Agitation Meclizine HCl 25 mg 04/03/20 18:30 04/04/20 10:31 Meclizine Hcl 25 Mg Tab PO 25 mg Q8H KARMA Administration Polyethylene Glycol 17 gm 04/03/20 09:00 04/04/20 09:13 Polyethylene Glycol 3350 17 Gm Packet PO 17 gm DAILY KARMA Administration Sodium Chloride 10 ml 04/03/20 09:00 04/04/20 09:13 Flush - Normal Saline 10 Ml Syringe IVF 10 ml Q12HR KARMA Administration Tramadol HCl 50 mg 04/04/20 11:26 04/04/20 11:49 Tramadol Hcl 50 Mg Tab PO 50 mg Q6H PRN Administration Pain - Exam Neck: negative: supple, symmetric, no JVD, no thyromegaly, no lymphadenopathy, no carotid bruit, JVD Heart: negative: RRR, no murmur, no gallops, no rubs, normal peripheral pulses, irregular, diminshed peripheral pulses, murmur present, II/IV, III/IV Respiratory: negative: CTAB, no wheezes, no rales, no ronchi, normal chest expansion, no tachypnea, normal percussion, rales, rhonchi, tachypneic, wheezes Gastrointestinal: negative: soft, non-tender, non-distended, normal bowel sounds, no palpable masses, no hepatomegaly, no splenomegaly, no bruit, no guarding, no rigidity, tender to palpation, distended, diminished bowl sounds, voluntary guarding Hosp A/P (1) Third degree heart block Code(s): I44.2 - ATRIOVENTRICULAR BLOCK, COMPLETE Status: Acute (2) Psoriasis Code(s): L40.9 - PSORIASIS, UNSPECIFIED Status: Acute (3) Anxiety Code(s): F41.9 - ANXIETY DISORDER, UNSPECIFIED Status: Acute (4) Chest pain Code(s): R07.9 - CHEST PAIN, UNSPECIFIED Status: Acute (5) Lightheadedness Code(s): R42 - DIZZINESS AND GIDDINESS Status: Acute - Plan MRI brain negative. Patient went down for stress test today had third-degree heart block. Will get cardiology to see her. Patient being evaluated by neurology.
[2020-04-04] MEDS: Enoxaparin Sodium 40 MG/0.4 ML SYRINGE SC SCH (21:17)
[2020-04-04] MEDS: Docusate 100 MG CAP PO SCH (21:22)
[2020-04-04] MEDS: Atorvastatin Calcium 40 MG TAB PO SCH (21:22)
[2020-04-04] MEDS: Diazepam 5 MG TAB PO PRN (21:32)
[2020-04-05] MEDS: Polyethylene Glycol 3350 17 GM Packet PO SCH (06:20)
[2020-04-05] MEDS: Meclizine HCl 25 MG TAB PO SCH ×2 (06:20→10:31)
[2020-04-05] MEDS: Aspirin 81 mg Enteric Coated Tablet PO SCH (06:20)
[2020-04-05] MEDS: Famotidine 20 MG TAB PO SCH (06:20)
[2020-04-05] MEDS ORDERED: Nitroglycerin 100MG/250ML BOT 250 ML ONE (06:30)
[2020-04-05] MEDS ORDERED: Nitroglycerin 100MG/250ML BOT 0 ML ONE (06:30)
[2020-04-05] MEDS ORDERED: Verapamil 5 MG/2 ML VIAL ONE (06:30)
[2020-04-05] MEDS ORDERED: Heparin 10,000 UNITS/ 10 ML VIAL ONE (06:30)
[2020-04-05] MEDS ORDERED: Lidocaine 1% (PF) 30 ML VIAL ONE (06:31)
[2020-04-05 06:32] LABS: #Basophils 0.1 thou/uL (0.0-0.2); #Eosinphils 0.4 thou/uL (0.0-0.7); #Lymphocytes 4.8 thou/uL (1.20-3.40); #Monocytes 0.8 thou/uL (0.11-0.59); #Neutrophils 4.1 thou/uL (1.40-6.50); %Basophils 0.8 % (0.0-1.0); %Eosinophils 3.8 % (0.0-10.0); %Lymphocytes 47.9 % (21.0-51.0); %Monocytes 7.4 % (0.0-10.0); %Neutrophils 40.1 % (42.0-75.0); Hemoglobin 13.1 g/dL (12.0-16.0); Mean Corpuscular HGB CONC 33.7 g/dL (32.0-36.0); Mean Corpuscular Hemoglobin 31.6 pg (27.0-31.0); Mean Corpuscular Volume 93.9 fL (78.0-98.0); Mean Platelet Volume 7.3 fL (7.4-10.4); Platelet Count 332 thou/uL (130-400); RBC Distribution Width 11.2 % (11.5-14.5); Red Blood Cell (RBC) Count 4.15 mill/uL (4.20-5.40); White Blood Cell (WBC) Count 10.1 thou/uL (4.8-10.8)
[2020-04-05] MEDS ORDERED: Midazolam HCl 2 mg/2 ml Vial ONE (07:16)
[2020-04-05 07:29] LABS: Anion Gap 11 mmol/L (10-20); BUN (Urea Nitrogen) 12 mg/dL (9.8-20.1); Calc. Creatinine Clearance 140 mL/min (70-130); Calcium 8.7 mg/dL (7.8-10.44); Carbon Dioxide 27 mmol/L (22-29); Cardiac Risk 4.4 (Less than 4.5); Chloride 104 mmol/L (98-107); Cholesterol 131 mg/dl (< 200 Desired); Estimated GFR-MDRD 86; Glucose 92 mg/dL (70-105); HDL Cholesterol 30 mg/dL (>60 Neg Risk); LDL Cholesterol, Calculated 50 mg/dL; Potassium 3.8 mmol/L (3.5-5.1); Sodium 138 mmol/L (136-145); Triglycerides 256 mg/dL (Less than 150)
[2020-04-05] MEDS ORDERED: Nitroglycerin 0.4 MG TAB (25 Tab Bottle) SL PRN (08:12)
[2020-04-05] MEDS ORDERED: Sodium Chloride 0.9% 200 ML IV PRN (08:12)
[2020-04-05] MEDS ORDERED: Acetaminophen/Codeine 30-300mg Tablet PO PRN ×2 (08:12)
[2020-04-05] MEDS ORDERED: Iopamidol 370 76% 100 ML VIAL ONE (08:33)
--- NOTE | 2020-04-05 08:47 | CON ---
DATE OF CONSULTATION: 04/04/2020 INDICATION FOR CONSULTATION: A 54-year-old female with chest pain, abnormal stress test, and risk factors for coronary artery disease. HISTORY OF PRESENT ILLNESS: This very pleasant 54-year-old female was admitted on 04/02/2020 as she had complained of numbness and tingling in her face and her hands. She also had some dizziness, but did not have any syncope. She became nauseated. She has had some diarrhea on Thursday. She mainly complained of numbness and some pressure, and she presented to the emergency room. She did undergo stress testing yesterday, which showed a possible small area in the distal anteroseptal wall of possible reversible ischemia. Otherwise, ejection fraction was normal. She has had no previous cardiac history that she is aware of, but does have a history of hypertension. She denied any history of hypercholesterolemia, diabetes, or tobacco abuse. She is adopted and does not know her family history. Otherwise, she has been doing relatively well. She still continued to have some tingling. She did have an EEG performed, which was normal. She had a CT scan, which was unremarkable. She had an MRI, which showed some mild diffuse aging process, but no significant acute episodes were noted. She still continues to have some sensation abnormalities from what she states and is mainly in the left side of her face and down the shoulder area and down the left arm. PAST MEDICAL HISTORY: Significant for hypertension, anxiety. She has psoriasis mainly involving the feet area. She has had anal surgery x2. She has had a hysterectomy. She has rheumatoid arthritis. SOCIAL HISTORY: She is a . She has 3 children. No heart disease in these children, ages from 29 to 35. She stops smoking many years ago. She has no alcohol use. She takes care of her grandson, who is autistic. FAMILY HISTORY: She is adopted. ALLERGIES: SHE IS ALLERGIC TO PENICILLIN AND SULFA. THE PENICILLIN CAUSED SUPPOSEDLY AN ANAPHYLACTIC REACTION WHEN SHE WAS A CHILD. MEDICATIONS: Prior to admission include; 1. MiraLAX. 2. Otezla. 3. Lisinopril/hydrochlorothiazide. 4. Valium. 5. Pepcid. 6. Humira. 7. Also stool softeners. Since being in the hospital, she has been placed on; 1. Aspirin. 2. Atorvastatin. 3. Flexeril. 4. Colace. 5. Lovenox She is on famotidine as well as Antivert, polyethylene glycol, albuterol inhalers, Tylenol, Xanax 0.25 mg 3 times a day p.r.n., clonidine also p.r.n., Valium p.r.n., as well as other p.r.n. medications. REVIEW OF SYSTEMS: The 12-point review of systems is unremarkable except what is noted in the history of present illness and also occasional headaches and gastroesophageal reflux disease. PHYSICAL EXAMINATION: GENERAL: A well-developed, well-nourished, overweight female. VITAL SIGNS: Blood pressure 132/74, heart rate is 88 and regular, respiratory rate 16. She is afebrile. HEENT: Head to be normocephalic and atraumatic. Carotid pulses are present. There are no bruits. CHEST: Clear to auscultation without rales, rhonchi, or wheezing. CARDIOVASCULAR: Regular rate and rhythm. There is a normal S1, S2. I cannot hear an S3 nor an S4. There are no significant murmurs, heaves, thrills, bruits, or rubs noted. ABDOMEN: Obese. Positive bowel sounds are present. I cannot elicit any tenderness or masses. EXTREMITIES: No clubbing, cyanosis, or edema. Pedal pulses are present. NEUROLOGIC: The patient appears to be fully intact. DIAGNOSTIC STUDIES: Her EKG shows a normal sinus rhythm with no acute changes. During the stress test with the adenosine, she did develop a second-degree heart block and then a complete heart block for just a few seconds. This is not necessarily unheard of and is not that unusual with adenosine. She has had no significant arrhythmias prior or after the infusion. The stress test did show the area as noted above, possible ischemic area in the distal anteroseptal area, which was felt to be possible ischemia, but EKG otherwise is relatively unremarkable. She has decreased R-wave in V1 through V3. However, she is also a smoker, has a big chest. At this time, given the abnormal stress test and her symptoms and with her degree of anxiety, it is felt she might best be served by undergoing a cardiac catheterization as a definitive tool to rule out evidence of underlying coronary artery disease. If any is found, then she may need further intervention otherwise. Then, if the patient presents again to the hospital complaining of chest discomfort, then we will know that most likely it is her anxiety and not coronary artery disease. History of obesity. She should be given dietary consultation for helping to lose some weight. Possible hypercholesterolemia. We will order cholesterol level to determine whether or not she does have hypercholesterolemia. She was placed on medications, but did not have a level of cholesterol to verify or to justify putting her on this medication. As far as her other issues are concerned, these will be dealt by the primary care service. I would suggest she undergo cardiac catheterization. I have explained the procedure and the risks to her to include bleeding, infection, possible myocardial infarction, CVA, renal insufficiency, allergic contrast reaction, and even the possibility of . She understands and agrees to proceed. We will plan for cardiac catheterization tomorrow morning. Job ID: [id number] JOE
[2020-04-05 08:55] VITALS: TEMP 97.7
[2020-04-05 11:49] VITALS: BP 124/71
[2020-04-05 13:25] VITALS: BMI 34.7
[2020-04-05] MEDS ORDERED: Lidocaine 5% Patch TD SCH (15:00)
--- NOTE | 2020-04-06 00:53 | DIS ---
DATE OF ADMISSION: 04/02/2020 DATE OF DISCHARGE: 04/05/2020 DISCHARGE DIAGNOSES: 1. Chest pain number. 2. Tingling to her left side of her face and upper extremity. HOSPITAL COURSE: The patient is a 54-year-old female, who initially presented to the hospital with vague symptoms of dizziness that which has been going on for months and also some left-sided paresthesia. The patient at this time underwent a stroke protocol including a brain MRI, and Neurology was consulted. A brain MRI just showed mild chronic ischemic white matter disease, otherwise it was significantly negative. She also had an EEG by Neurology, which was negative. She also had chest pain on admission. She did undergo a stress test, which was essentially negative. However, during the stress test, because of adenosine, she had a third-degree block. At this time, cardiology was consulted and she underwent a cardiac catheterization. Her cardiac catheterization indicated normal coronaries. Her EF of 55% to 60%. She was then discharged home. She will follow up with her primary. HOME MEDICATIONS: 1. MiraLAX 17 g daily. 2. Otezla 30 mg daily. 3. She is on lisinopril/hydrochlorothiazide 1 tab daily. 4. Valium as needed. 5. Pepcid daily. 6. I added some Flexeril t.i.d. for her spasms to her left shoulder. PHYSICAL EXAMINATION: VITAL SIGNS: On discharge, temperature 97.7, 80, 18, 100% on room air, and 124/71. GENERAL: She is awake, alert, and oriented x3, does not appear in distress. CARDIOVASCULAR: S1 and S2 present. No murmurs, rubs, gallops. PLAN: The patient will be discharged home. She will follow up with her primary. Job ID: [id number]
[2020-04-06] MEDS ORDERED: Lidocaine Patch Removal 1 EACH TOP SCH (03:00)
--- NOTE | 2020-04-07 02:32 | PQF ---
CLINICAL DOCUMENTATION CLARIFICATION FORM: Dear : Shantell Mistry Date / Time:04/07/20 5640 Please exercise your independent, professional judgment in responding to the clarification form. Clinical indicators are provided on the bottom of this form for your review Is Chest Pain associated with: Please check appropriate box(es): [ x ] Anxiety [ ] Musculoskeletal pain [ ] Myocardial infarction, please specify type: [ ] GERD [ ] Other diagnosis [ ] Unable to determine Physician Signature: Date/Time: For continuity of documentation, please document condition throughout progress notes and discharge summary. Thank You. To be completed by CDI/Coding staff for physician review: Present Clinical Indicators - Signs / Symptoms / Labs Results and Location in Medical Record [X] BP 157/68, Pulse 85, Resp 18, Temp 98.2 Vital signs 04/02 [X] VBG: pH7.41, pCO2 37.6, pO2 243.0, O2 sat 99.4 Laboratory 04/03 [X] Troponin 0.010 Laboratory 04/03 [X] A very wide range of symptoms x 24 hrs including numbness, chest pain, altered mental status, dizziness, presyncope H&P p5 04/02 Dr Alvarez [X] VBG suggest hyperventilation and respiratory alkalosis, I was wordeting if from anxiety induced hyperventilation H&P p5 04/02 Dr Alvarez [X] Rule out WI w/ stress test H&P p5 04/02 Dr Alvarez [X] Somewhat suspect this is all anxiety related through H&P p5 04/02 Dr Alvarez Present Risk Factors Results and Location in Medical Record [X] HTN H&P p1 04/02 Dr Alvarez [X] Severe anxiety H&P p1 04/02 Dr Alvarez [X] Psoriasis H&P p1 04/02 Dr Alvarez [X] GERD H&P p1 04/02 Dr Alvarez Present Treatments Results and Location in Medical Record [X] IVF NS 1L SEP 05 [X] IV Ativan 0.5 mg SEP 05 [X] LHC Cardiac Procedure Dr Villalta 04/05 [X] Stress test Cardiac Procedure Dr Burns 04/04 [X] Echocardiogram Cardiac Procedure Dr Villalta 04/05 [X] Cardiology consult Consult Dr Villalta 04/05 CDS/Revival Clerk Signature: Roxanna Cross Phone #: [phone] Date/Time: 04/07/2020231 This is a permanent part of the Medical Record [facility]
--- NOTE | 2020-04-07 02:33 | PQF ---
CLINICAL DOCUMENTATION CLARIFICATION FORM: Dear : Shantell Mistry Date / Time:04/07/20 0372 Please exercise your independent, professional judgment in responding to the clarification form. Clinical indicators are provided on the bottom of this form for your review Please check appropriate box(es): [ ] Encephalopathy: Etiology: [ ] Metabolic [ ] Toxic [ ] Unspecified [ x ] Other (please specify) ____most likely anxiety related [ ] Transient Alteration of Awareness [ ] Other diagnosis [ ] Unable to determine In addition, please specify: Present on Admission (POA): [ x ] Yes [ ] No [ ] Unable to determine Physician Signature: Date/Time: For continuity of documentation, please document condition throughout progress notes and discharge summary. Thank You. To be completed by CDI/Coding staff for physician review: Present Clinical Indicators - Signs / Symptoms / Labs Results and Location in Medical Record [X] BP 157/68, Pulse 85, Resp 18, Temp 98.2 Vital signs 04/02 [X] VBG: pH7.41, pCO2 37.6, pO2 243.0, O2 sat 99.4 Laboratory 04/03 [X] report her hands being numb and dizziness last night H&P p1 04/02 Dr Alvarez [X] This morning was confused and could not get out of bed H&P p1 04/02 Dr Alvarez [X] Weakness and malaise H&P p1 04/02 Dr Alvarez [X] A very wide range of symptoms x 24 hrs including numbness, chest pain, altered mental status, dizziness, presyncope H&P p5 04/02 Dr Alvarez [X] Somewhat suspect this is all anxiety related through H&P p5 04/02 Dr Alvarez Present Risk Factors Results and Location in Medical Record [X] HTN H&P p1 04/02 Dr Alvarez [X] Severe anxiety H&P p1 04/02 Dr Alvarez [X] Psoriasis H&P p1 04/02 Dr Alvarez Present Treatments Results and Location in Medical Record [X] IVF NS 1L SEP 05 [X] IV Ativan 0.5 mg SEP 05 [X] VBG Laboratory 04/03 [X] CT brain Imaging Dr Welsh 04/03 [X] Brain MRI Imaging Dr Contreras 04/02 [X] EEG/EMG Procedure Dr Maurice CDS/Advertisement Distributor Signature: Roxanna Gibsonsumanth Cross Phone #: ext [phone] Date/Time: 04/07/2020231 This is a permanent part of the Medical Record [facility]
== END 2020-04-05 16:16 | disposition home or self-care (01) | DRG 880 ==
LOC: ERS 14:41 → 2NO 20:59
PROVIDERS: ADMIT Internal Medicine; ATTEND Internal Medicine
PROC: 4A023N7 Measurement of Cardiac Sampling and Pressure, Left Heart, Percutaneous Approach (ICD-10-PCS; principal; 2020-04-05)
PROC: B2111ZZ Fluoroscopy of Multiple Coronary Arteries using Low Osmolar Contrast (ICD-10-PCS; 2020-04-05)
PROC: B2151ZZ Fluoroscopy of Left Heart using Low Osmolar Contrast (ICD-10-PCS; 2020-04-05)
DX: F41.9 Anxiety disorder, unspecified (principal); E87.3 Alkalosis; I44.2 Atrioventricular block, complete; G93.49 Other encephalopathy; Z20.828 Contact with and (suspected) exposure to other viral communicable diseases; R20.2 Paresthesia of skin; I10 Essential (primary) hypertension; L40.9 Psoriasis, unspecified; K21.9 Gastro-esophageal reflux disease without esophagitis; D72.829 Elevated white blood cell count, unspecified; E66.9 Obesity, unspecified; Z90.710 Acquired absence of both cervix and uterus; Z88.0 Allergy status to penicillin; Z88.2 Allergy status to sulfonamides; Z79.899 Other long term (current) drug therapy; Z68.34 Body mass index [BMI] 34.0-34.9, adult
CPT/HCPCS: 36415; 70450; 70553; 71045; 78452; 80048; 80053; 80061; 81003; 82805; 83605; 83690; 83735; 84443; 84484; 85025; 85379; 87040; 87086; 87635; 93005; 93017; 93306; 93458; 95712; 95816; 95819; 96361; 96365; 96367; 96375; 96376; 99152; A9500; A9579; J0153; J0280; J0692; J1644; J1650; J2001; J2060; J2250; J2405; J2785; J3370; J3475; Q9967; U0003